=== PATIENT | female | born 1975 | race Caucasian/White ===

== ENCOUNTER 2025-04-26 11:32 | Emergency (ER) | payer MEDICAID ==
[~2025-04-26] VITALS: Ht 160 cm; Wt 131.1 kg
[2025-04-26 12:45] VITALS: BP 140/74; PULSE 94; RESP 18; TEMP 98.5; O2SAT 97
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
[2025-04-26] MEDS ORDERED: IBUP-1456 PO (14:25)
== END 2025-04-26 14:33 | disposition home or self-care (01) ==
LOC: ER 11:32
DX: S93.401A Sprain of unspecified ligament of right ankle, initial encounter (principal); S46.911A Strain of unspecified muscle, fascia and tendon at shoulder and upper arm level, right arm, initial encounter; V49.9XXA Car occupant (driver) (passenger) injured in unspecified traffic accident, initial encounter; Y93.89 Activity, other specified; Y92.488 Other paved roadways as the place of occurrence of the external cause; Y99.8 Other external cause status
CPT/HCPCS: 73610